=== PATIENT | female | born 1985 | race Caucasian/White ===

== ENCOUNTER 2016-10-19 09:21 | Emergency (ER) | payer OTHER ==
--- NOTE | ~2016-10-19 | CT4 ---
[facility] A Service of [facility] & [facility] / [facility] RADIOLOGY TEXT RESULTS PATIENT: TOR EDMONDSON LOCATION: [facility] : [birth year] UNIT #: [id number] AGE: [address]: Deonna Molina APRN SEX: F ORDER DR: [id number] [facility] [address] [place], [place] [address] [id number] MR#: [id number] Acc #: [id number] NAME: TOR EDMONDSON : 1985 SEX: F STUDY DATE/TIME: 10/19/2016 9:54 UNIT: [facility] ROOM: STUDY DESCRIPTION: CT Abd and Pelv Wo Cont Attending Physician: Deonna Molina A.P.R.N. Referring Physician: Primary Care Physician No Ordering Physician: Deonna Molina A.P.R.N. Primary Care Physician: Primary Care Physician No MEDICAL IMAGING REPORT This report is preliminary unless electronic signature is present EXAM CT abdomen and pelvis, noncontrast, kidney stone protocol, 10/19/2016 HISTORY 31-year-old female in the ED complaining of sudden onset right flank pain beginning early this morning. She has a history of kidney stones. TECHNIQUE CT examination of the abdomen and pelvis was performed without oral or IV contrast using kidney stone protocol. This CT exam was performed with one or more of the following radiation dose reduction techniques: automatic exposure control, adjustment of mA and/or kV according to patient size, and iterative reconstruction. FINDINGS Abdomen: There is a tiny obstructing calculus in the right distal ureter at the UVJ measuring 1-2 mm in size. This causes moderate right hydronephrosis. Nonobstructing 3 mm calculus in the left upper kidney. Liver, pancreas and spleen are within normal limits. Nondistended gallbladder. No bile duct dilatation. Small bowel and colon are normal in caliber and appearance. The appendix is normal. Pelvis: Uterus, both ovaries, bladder and rectum are within normal limits. Limited lung base images show no active disease in the lower chest. IMPRESSION 1. Tiny obstructing calculus in the right distal ureter at the UVJ measuring 1-2 mm in size, causing moderate right hydronephrosis. 2. 3 mm nonobstructing left upper pole renal calculus. 3. The remainder of the examination is negative. The appendix is normal. [facility] A Service of [facility] RADIOLOGY TEXT RESULTS PATIENT: TOR EDMONDSON LOCATION: [facility] : [birth year] UNIT #: [id number] AGE: [address]: Deonna Molina APRN SEX: F ORDER DR: Dictated by... Mendez Davis M.D. THIS IS AN ELECTRONICALLY VERIFIED REPORT Mendez Davis M.D. at 10/19/2016 3:01 PM Zain TD: 10/19/2016 13:17 JOB #: [id number] MEDICAL IMAGING REPORT COPY
[2016-10-19 09:36] LABS: URINE SOURCE CLEAN CATCH
[2016-10-19 09:42] LABS: URINE APPEARANCE CLOUDY; URINE BILIRUBIN NEG (NEG); URINE BLOOD 2+ (NEG); URINE COLOR YELLOW; URINE GLUCOSE NEG (NEG); URINE KETONE NEG (NEG); URINE LEUKOCYTE ESTERASE NEG (NEG); URINE NITRATE NEG (NEG); URINE PH 6.5 (5-8); URINE PROTEIN NEG (NEG); URINE UROBILINOGEN 0.2 MG/DL (NEG)
[2016-10-19 09:46] LABS: CULTURE INDICATED? YES; URINE BACTERIA AUWI 1+ (NEGATIVE); URINE SQUAMOUS EPITHELIAL CELL OCC /[HPF]
[2016-10-19 09:53] LABS: BASOPHIL# 0.1 X10e3 (0-0.3); BASOPHIL% 0.5 % (0-2.5); EOSINOPHIL# 0.1 X10e3 (0-0.7); EOSINOPHIL% 0.4 % (0.0-7.0); HEMOGLOBIN 14.1 gm/dL (12.0-16.0); LYMPHOCYTE# 3.1 X10e3 (1.0-3.5); LYMPHOCYTE% 22.1 % (17.0-45.0); MEAN CELL VOLUME 88.8 FL (83-96); MEAN CORPUSCULAR HEMOGLOBIN 28.5 PG (28-34); MEAN CORPUSCULAR HGB CONC 32.1 g/dL (30-36); MEAN PLATELET VOLUME 10.2 FL (6.5-11.5); MONOCYTE# 0.7 X10e3 (0-1.0); MONOCYTE% 5.2 % (3.0-12.0); NEUTROPHIL# 10.1 X10e3 (1.5-7.1); NEUTROPHIL% 71.8 % (40-75); PLATELET COUNT 157 X10e3 (140-420); RED BLOOD COUNT 4.95 X10e (3.90-5.30); RED CELL DISTRIBUTION WIDTH 13.2 % (11.0-15.5)
[2016-10-19 09:55] LABS: DIFF IND NO
[2016-10-19 10:22] LABS: ALBUMIN SERUM 3.6 g/dL (3.5-5.0); ALKALINE PHOSPHATASE 65 U/L (32-92); ALT (SGPT) 28 U/L (10-40); AST (SGOT) 21 U/L (10-42); BILIRUBIN,TOTAL 0.3 mg/dL (0.2-2.0); BLOOD UREA NITROGEN 16 mg/dL (9-23); BUN/CREATININE RATIO 17.77; CALCIUM SERUM 8.7 mg/dL (8.4-10.2); CARBON DIOXIDE 24 mmol/L (22-31); CHLORIDE 108 mmol/L (100-111); CREATININE SERUM 0.9 mg/dL (0.6-1.4); GLOM FILT RATE Estimated ABOVE60 mL/min (>60); GLUCOSE FASTING 98 mg/dL (70-110); POTASSIUM 3.8 mmol/L (3.5-5.1); PROTEIN TOTAL SERUM 6.7 g/dL (6.0-8.3); SODIUM 141 mmol/L (135-145)
== END 2016-10-19 12:10 | disposition home or self-care (01) ==
LOC: CED 09:21
PROVIDERS: Nurse Practitioner
DX: N13.2 Hydronephrosis with renal and ureteral calculous obstruction (principal); F17.210 Nicotine dependence, cigarettes, uncomplicated
CPT/HCPCS: 36415; 74176; 80053; 81003; 84703; 85025; 87086; 96361; 96374; 96375; 99284; J2270; J2405